=== PATIENT | female | born 1985 | race Caucasian/White ===

== ENCOUNTER 2018-02-25 13:04 | Emergency (ER) | payer SELFPAY ==
[~2018-02-25] VITALS: Ht 160 cm; Wt 53.1 kg
[2018-02-25 16:29] VITALS: BP 101/89
== END 2018-02-25 16:29 | disposition home or self-care (01) ==
LOC: ED 13:04
DX: J02.9 Acute pharyngitis, unspecified (principal)

== ENCOUNTER 2018-06-16 11:42 | Emergency (ER) | payer MEDICAID ==
[~2018-06-16] VITALS: Ht 160 cm; Wt 59.0 kg
[2018-06-16 12:00] VITALS: Ht 160 cm; Wt 59.0 kg
[2018-06-16 13:43] VITALS: BP 132/79
== END 2018-06-16 13:40 | disposition home or self-care (01) ==
LOC: ED 11:42
DX: S90.812A Abrasion, left foot, initial encounter (principal); M79.89 Other specified soft tissue disorders; F32.9 Major depressive disorder, single episode, unspecified; F41.9 Anxiety disorder, unspecified; X58.XXXA Exposure to other specified factors, initial encounter; Y93.89 Activity, other specified; Y92.89 Other specified places as the place of occurrence of the external cause; Y99.8 Other external cause status
CPT/HCPCS: 90715; J2001

== ENCOUNTER 2018-06-19 15:13 | Emergency (ER) | payer MEDICAID ==
[~2018-06-19] VITALS: Ht 160 cm; Wt 59.0 kg
[2018-06-19 15:18] VITALS: BP 124/85; Ht 160 cm; Wt 59.0 kg
== END 2018-06-19 16:18 | disposition home or self-care (01) ==
LOC: ED 15:13
DX: S90.812D Abrasion, left foot, subsequent encounter (principal); L03.116 Cellulitis of left lower limb; F41.9 Anxiety disorder, unspecified; F32.9 Major depressive disorder, single episode, unspecified; X58.XXXD Exposure to other specified factors, subsequent encounter
CPT/HCPCS: J0696

== ENCOUNTER 2018-06-25 10:39 | Inpatient (IN) | payer MEDICAID ==
[~2018-06-25] VITALS: Ht 160 cm; Wt 58.1 kg
[2018-06-25 10:45] VITALS: Ht 160 cm; Wt 58.1 kg
[2018-06-25 11:38] LABS: BASOPHIL % 0.4 % (0-2); PLATELET COUNT 230 x10^3mcL (130-400); RED CELL DISTRIBUTION WIDTH 14.1 % (11.5-14.5)
[2018-06-25 11:44] LABS: CALCIUM 8.5 mg/dL (8.5-10.1); CARBON DIOXIDE 26.8 mmol/L (21-32); CHLORIDE SERUM 109 mmol/L (98-107); CREATININE SERUM 0.7 mg/dL (0.6-1.0); GFR1 > 60 mL/min; GLUCOSE SERUM 96 mg/dL (74-106); POTASSIUM SERUM 3.9 mmol/L (3.5-5.1); SODIUM SERUM 142 mmol/L (136-145)
[2018-06-25] MEDS ORDERED: CEPHALEXIN500 M1 PO (11:50)
[2018-06-25 13:59] VITALS: BP 116/62
[2018-06-25 17:13] VITALS: BP 116/55
[2018-06-26 05:35] VITALS: BP 97/58
[2018-06-26 07:43] LABS: CHLORIDE SERUM 106 mmol/L (98-107); CREATININE SERUM 0.7 mg/dL (0.6-1.0); GFR1 > 60 mL/min; GLUCOSE SERUM 86 mg/dL (74-106); POTASSIUM SERUM 3.6 mmol/L (3.5-5.1); SODIUM SERUM 139 mmol/L (136-145)
[2018-06-26 07:46] LABS: BASOPHIL % 0.2 % (0-2); PLATELET COUNT 238 x10^3mcL (130-400); RED CELL DISTRIBUTION WIDTH 13.4 % (11.5-14.5)
[2018-06-26 09:16] VITALS: BP 107/50
[2018-06-26 17:48] VITALS: BP 118/49
[2018-06-26 21:13] VITALS: BP 107/51
[2018-06-27 06:04] VITALS: BP 105/57
[2018-06-27 06:29] LABS: CALCIUM 8.3 mg/dL (8.5-10.1); CHLORIDE SERUM 108 mmol/L (98-107); CREATININE SERUM 0.8 mg/dL (0.6-1.0); GFR1 > 60 mL/min; GLUCOSE SERUM 88 mg/dL (74-106); POTASSIUM SERUM 3.8 mmol/L (3.5-5.1); SODIUM SERUM 139 mmol/L (136-145)
[2018-06-27 06:52] LABS: BASOPHIL % 0.3 % (0-2); PLATELET COUNT 220 x10^3mcL (130-400); RED CELL DISTRIBUTION WIDTH 13.5 % (11.5-14.5)
[2018-06-27 07:11] LABS: CARBON DIOXIDE 27.5 mmol/L (21-32)
[2018-06-27 09:02] VITALS: BP 100/52
[2018-06-27 17:51] VITALS: BP 129/61
[2018-06-27 20:46] VITALS: BP 106/52
[2018-06-27 22:03] VITALS: BP 106/52
== END 2018-06-27 22:30 | disposition home or self-care (01) | DRG 384 ==
LOC: ED 10:39 → MU 12:17
PROVIDERS: Emergency Medicine; Family Medicine
DX: S90.81 Abrasion of foot (principal); L03.116 Cellulitis of left lower limb; J02.9 Acute pharyngitis, unspecified; R07.89 Other chest pain; T36.8X5A Adverse effect of other systemic antibiotics, initial encounter; Y92.230 Patient room in hospital as the place of occurrence of the external cause; V03.0 Pedestrian injured in collision with car, pick-up truck or van in nontraffic accident
CPT/HCPCS: J0696; J1200; J3370; J7030; J7050